=== PATIENT | female | born 1980 | race Two or more races ===

== ENCOUNTER 2023-11-13 16:43 | Emergency (ER) | payer MEDICAID, OTHER ==
[~2023-11-13] VITALS: Ht 170.2 cm; Wt 56.2 kg
[2023-11-13 18:00] VITALS: BP 112/56; PULSE 66; RESP 18; TEMP 98.1; O2SAT 99
[2023-11-13] MEDS ORDERED: CEPH500C PO (18:44)
[2023-11-13] MEDS ORDERED: MUPI2OIN2 EX (18:44)
[2023-11-13] MEDS ORDERED: IBUP-1453 PO (18:44)
[2023-11-13] MEDS: NEOMYCIN-BACITRACIN-POLYM UNITDOSE PKG TOP OINT TOP ONE (18:46)
[2023-11-13] MEDS: TETANUS-DIPTH-ACEL PERTUSSIS 0.5ML SYR Tdap IM ONE (18:48)
== END 2023-11-13 18:53 | disposition home or self-care (01) ==
LOC: ER 16:43
DX: S61.012A Laceration without foreign body of left thumb without damage to nail, initial encounter (principal); W26.8XXA Contact with other sharp object(s), not elsewhere classified, initial encounter; Y93.89 Activity, other specified; Y92.89 Other specified places as the place of occurrence of the external cause; Y99.8 Other external cause status
CPT/HCPCS: 12001; 90471; 90715; 99283; J2001

== ENCOUNTER 2023-11-27 11:29 | Emergency (ER) | payer MEDICAID ==
[~2023-11-27] VITALS: Ht 170.2 cm; Wt 56.9 kg
[~2023-11-27 11:29] MED LIST: CEPH500C PO; IBUP-1453 PO; MUPI2OIN2 EX
[2023-11-27 12:50] VITALS: BP 99/48; PULSE 64; RESP 20; TEMP 98.4; O2SAT 98
== END 2023-11-27 12:54 | disposition home or self-care (01) ==
LOC: ER 11:29
DX: S61.012D Laceration without foreign body of left thumb without damage to nail, subsequent encounter (principal); Z48.02 Encounter for removal of sutures; X58.XXXD Exposure to other specified factors, subsequent encounter